=== PATIENT | male | born 1995 | race African-American/Black ===

== ENCOUNTER 2018-10-28 01:25 | Emergency (ER) | payer MEDICAID, OTHER ==
[~2018-10-28] VITALS: Ht 185.4 cm; Wt 99.8 kg
[2018-10-28 01:48] VITALS: BP 126/67
[2018-10-28] MEDS ORDERED: IBUPROFEN600 MG ORAL (02:33)
[2018-10-28 02:40] VITALS: BP 126/67
--- NOTE | 2018-10-28 03:41 | Emergency Room Report ---
History of Present Illness General Chief Complaint: Upper Extremity Injury Source: Patient Present Illness HPI 23-year-old male presents ED for evaluation. Patient complaining of right hand and wrist pain for last 3 days. States that he may have rolled on it while he was sleeping because he woke up with pain. Throbbing, /10, nonradiating. Denies any other injuries. No other aggravating relieving factors. Denies any other associated symptoms Allergies: Coded Allergies: No Known Allergies (Unverified , 10/28/18) Patient History Past Medical History: none Past Surgical History: none Pertinent Family History: none Social History: Denies: smoking, alcohol use, drug use Immunizations: UTD Reviewed Nursing Documentation: PMH: Agreed; PSxH: Agreed Nursing Documentation-PMH Past Medical History: No Stated History Review of Systems All Other Systems: negative except mentioned in HPI Physical Exam Vital Signs Date Time Temp Pulse Resp B/P (MAP) Pulse Ox O2 Delivery O2 Flow Rate FiO2 10/28/18 01:31 98.2 90 16 126/67 96 Sp02 EP Interpretation: reviewed, normal General Appearance: no apparent distress, alert, GCS 15, non-toxic Head: normocephalic, atraumatic Eyes: bilateral eye normal inspection, bilateral eye PERRL ENT: normal ENT inspection Neck: normal inspection Respiratory: normal inspection, speaking full sentences Cardiovascular #1: normal inspection Cardiovascular #2: 2+ carotid (R), 2+ carotid (L), 2+ radial (R), 2+ radial (L) , 2+ dorsalis pedis (R), 2+ dorsalis pedis (L) Gastrointestinal: normal inspection Rectal: deferred Genitourinary: no CVA tenderness Musculoskeletal: back normal, gait/station normal, normal range of motion, tender - R thumbb Neurologic: alert, oriented x3, responsive, motor strength/tone normal, sensory intact, speech normal Psychiatric: judgement/insight normal, memory normal, mood/affect normal, no suicidal/homicidal ideation Reflexes: 3+ bicep (R), 3+ bicep (L), 3+ tricep (R), 3+ tricep (L), 3+ knee (R) , 3+ knee (L) Skin: normal color, no rash, warm/dry, well hydrated Lymphatic: no adenopathy Procedures Splinting Splinting : Consent: Verbal Pre-Made Type: velcro Splint: thumb spica Pre-Proc Neuro Vasc Exam: normal Post-Proc Neuro Vasc Exam: normal Patient Tolerated: Well Complications: None Medical Decision Making Diagnostic Impression: Primary Impression: Thumb sprain Qualified Codes: S63.601A - Unspecified sprain of right thumb, initial encounter ER Course Hospital Course 23-year-old M presents to ED complaining of R hand pain/swelling Differential diagnoses include: Fracture, dislocation, sprain, contusion Clinical course Patient placed on stretcher. After initial history and physical, I ordered xrays of R hand/wrist Xrays prelim read shows no acute fracture/dislocation. +soft tissue swelling R thumb/thenar eminenence Placed in thumb spica splint. Discussed findings with patient. Recommend conservative therapy with ice, NSAIDs, splinting for 7-10 days Safe for discharge and close outpatient follow-up. We'll provide ortho referrals. Diagnosis - thumb sprain Stable and discharged to home with prescription for Motrin. apply ice, keep elevated. weight bear as tolerated. Followup with ortho. Return to ED if symptoms recur or worsen Other X-Ray Diagnostic Results Other X-Ray Diagnostic Results #1: X-Ray ordered: R hand # of Views/Limited Vs Complete: 3 View Indication: Pain EP Interpretation: Yes Interpretation: no dislocation, no fractures, other - soft tissue swelling Impression: No acute disease Electronically Signed by: Electronically signed by Rico Will MD Other X-Ray Diagnostic Results #2: X-Ray ordered: R wrist # of Views/Limited Vs Complete: 3 View Indication: Pain EP Interpretation: Yes Interpretation: no dislocation, no soft tissue swelling, no fractures Impression: No acute disease Electronically Signed by: Electronically signed by Rico Will MD Last Vital Signs Date Time Temp Pulse Resp B/P (MAP) Pulse Ox O2 Delivery O2 Flow Rate FiO2 10/28/18 02:40 98.2 16 126/67 96 10/28/18 01:48 86 Status: improved Disposition: HOME, SELF-CARE Condition: Stable Scripts Ibuprofen* (MOTRIN*) 600 Mg Tablet 600 MG ORAL Q8H PRN for For Pain, #30 TAB 0 Refills Prov: Rico Will MD 10/28/18 Patient Instructions: Thumb Sprain Additional Instructions: Orthopedic urgent care: [address] [facility] [address] [place] [address] email: Rico Will MD Oct 28, 2018 03:41
--- NOTE | 2018-10-28 10:02 | Diagnostic Imaging Report ---
Indication: Right wrist pain Findings: 3 views of the right wrist were obtained. No acute fractures, malalignment, erosions or periostitis are identified. Soft tissues are unremarkable. Impression: No acute findings.
--- NOTE | 2018-10-28 11:08 | Diagnostic Imaging Report ---
Indication: Right hand pain11 Findings: 3 views of the right hand were obtained. Normal bony mineralization and alignment are demonstrated. No acute fractures, erosions, or periosteal reaction are seen. Soft tissues are unremarkable. Impression: No acute findings.
== END 2018-10-28 02:40 | disposition home or self-care (01) ==
LOC: EMR 01:44
DX: S63.601A Unspecified sprain of right thumb, initial encounter (principal); X58.XXXA Exposure to other specified factors, initial encounter; Y92.89 Other specified places as the place of occurrence of the external cause
CPT/HCPCS: 29125; 99284